=== PATIENT | male | born 1970 | race Caucasian/White ===

== ENCOUNTER 2021-08-26 22:41 | Emergency (ER) | payer OTHER ==
[2021-08-26 22:51] VITALS: BP 127/88; PULSE 99; RESP 18; TEMP 97.9
[2021-08-26] MEDS ORDERED: ACETAMINOPHEN TAB 500 MG TAB PO STA (23:11)
[2021-08-26] MEDS ORDERED: AMPICILLIN-SULBACTAM 3 GM in SODIUM CHLORIDE 0.9% 50 ML IVPB STA (23:11)
[2021-08-26] MEDS ORDERED: KETOROLAC 15 MG/ML 1 ML VIAL IVP STA (23:11)
[2021-08-26] MEDS ORDERED: DIPH,PERTUS(ACELL)TETVAC-LF 0.5 ML VIAL IM ONE (23:12)
--- NOTE | 2021-08-26 23:25 | ED ---
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 He states it was a medium-sized dog. The drawing supervisor the dog to the patient that the dog was up-to-date on immunizations. The dog can be located and monitored. Patient states the attack was unprovoked. Patient sustained a bite wound to the lateral aspect of his left lower leg just above the lateral malleolus. He also sustained a bite to the right calf bilaterally. Patient complaining of pain which is likely related to soft tissue. Patient is able to ambulate. Last tetanus unknown. Patient has no significant past medical history. Patient is a cigarette smoker. Denies alcohol or drug abuse. No headache, no fever or chills, no changes in vision or hearing, no sore throat or difficulty with speech, no neck pain, no chest pain or shortness of breath, no abdominal pain, no nausea or vomiting, no changes in urination or bowel movements, no numbness or tingling, , no skin rashes or lesions. MD Complaint: animal bite Onset/Timin -: hour(s) Left: Leg (lower), Right: Leg Animal: dog Description: household pet, immunizations UTD Mechanism: bite Pain Description: dull, constant Severity scale (1-10): 7 Context: unprovoked Associated Symptoms: none Treatments Prior to Arrival: other (none) - Related Data Previous Rx's Medication Instructions Recorded Acetaminophen [Tylenol] 500 mg PO Q4-6H PRN #24 tab 08/27/21 Amoxicillin/Potassium Clav 1 each PO Q12HR #20 tab 08/27/21 [Augmentin 875-125 Tablet] Ibuprofen [Motrin] 600 mg PO Q8HR PRN #30 tab 08/27/21 Allergies Allergy/AdvReac Type Severity Reaction Status Date / Time No Known Allergies Allergy Verified 08/26/21 22:51 Review of Systems ROS Statement: Those systems with pertinent positive or pertinent negative responses have been documented in the HPI. ROS Other: All systems not noted in ROS Statement are negative. Past Medical History Past Medical History: No Reported History History of Any Multi-Drug Resistant Organisms: None Reported Additional Past Surgical History / Comment(s): abdominal surgery, back surgery Past Psychological History: No Psychological Hx Reported Smoking Status: Current every day smoker Past Alcohol Use History: Occasional Past Drug Use History: None Reported General Exam General appearance: alert, in no apparent distress Head exam: Present: atraumatic, normocephalic, normal inspection Eye exam: Present: normal appearance, PERRL, EOMI. Absent: scleral icterus, conjunctival injection, periorbital swelling ENT exam: Present: normal exam, mucous membranes moist Neck exam: Present: normal inspection. Absent: tenderness, meningismus, lymphadenopathy Respiratory exam: Present: normal lung sounds bilaterally. Absent: respiratory distress, wheezes, rales, rhonchi, stridor Cardiovascular Exam: Present: regular rate, normal rhythm, normal heart sounds. Absent: bradycardia, tachycardia, irregular rhythm, systolic murmur, diastolic murmur, rubs, gallop, clicks GI/Abdominal exam: Present: soft, normal bowel sounds. Absent: distended, tenderness, guarding, rebound, rigid Extremities exam: Present: full ROM, tenderness, normal capillary refill. Absent: pedal edema, joint swelling, calf tenderness Back exam: Present: normal inspection, full ROM Neurological exam: Present: alert, oriented X3, CN II-XII intact Psychiatric exam: Present: normal affect, normal mood Skin exam: Present: warm, dry, normal color. Absent: rash Course Vital Signs 08/26/21 22:45 Temperature 97.9 F Pulse Rate 99 Respiratory 18 Rate Blood Pressure 127/88 O2 Sat by Pulse 96 Oximetry Procedures - Procedures Initial comment: All wounds were irrigated thoroughly with sterile water. Bacitracin applied. Sterile bandages applied. Patient tolerated well Medical Decision Making - Medical Decision Making Patient present with multiple bite wounds to both lower legs. These were fairly superficial. Although the bite wound at the medial aspect of the right lower leg did contact the subcutaneous tissue. There is no foreign body. No bony involvement. Distal pulses were 2+ a 4. Distal sensation intact. Capillary refill less than 2 seconds. Svelte now. Patient had no other wounds or abnormalities. Wounds were cleansed thoroughly. Patient was given a dose of Unasyn. Tetanus was updated. Wound care discussed, signs and symptoms of infection discussed. Dog be monitored. Patient was told to return to the ER for any signs or symptoms worsen. Told to return immediately if any other problems arise. All questions answered. Treatment plan discussed. Patient in agreement Every effort has been made to ensure accuracy of this dictation. However, due to the limitations of electronic medical records and dictation devices, errors in charting still occur. - Radiology Data Radiology results: report reviewed, image reviewed Disposition Clinical Impression: Dog bite Disposition: HOME SELF-CARE Condition: Good Instructions (If sedation given, give patient instructions): Animal Bite (ED) Additional Instructions: Medical record is reviewed Symptoms are improved here in the emergency department Patient is informed of results and questions answered Patient in no distress Prescriptions: Amoxicillin/Potassium Clav [Augmentin 875-125 Tablet] 1 each PO Q12HR #20 tab Ibuprofen [Motrin] 600 mg PO Q8HR PRN #30 tab PRN Reason: Pain Acetaminophen [Tylenol] 500 mg PO Q4-6H PRN #24 tab PRN Reason: Pain Is patient prescribed a controlled substance at d/c from ED?: No Referrals: Almas Renteria MD [STAFF PHYSICIAN] - 1-2 days Time of Disposition: 00:49
[2021-08-26] MEDS ORDERED: AMPICILLIN-SULBACTAM 3 GM in SODIUM CHLORIDE 0.9% 100 ML IVPB ONE (23:30)
--- NOTE | 2021-08-27 00:38 | XR ---
EXAMINATION TYPE: XR tibia fibula bilateral DATE OF EXAM: 08/26/2021 COMPARISON: NONE HISTORY: Trauma. bit by a dog. TECHNIQUE: 8 views FINDINGS: There is bilateral plantar calcaneal spurring. Left and right ankle joint appear intact. Th e knee joints appear intact. I see no fracture nor dislocation. No evidence of a foreign body. IMPRESSION: No acute abnormality of the bilateral tibia and fibula.
[2021-08-27] MEDS ORDERED: BACITRACIN OINT 1 EACH PACKET TOPICAL ONE (00:47)
== END 2021-08-27 01:04 | disposition home or self-care (01) ==
LOC: EC 22:41
DX: S80.872A Other superficial bite, left lower leg, initial encounter (principal); S80.871A Other superficial bite, right lower leg, initial encounter; F17.200 Nicotine dependence, unspecified, uncomplicated; W54.0XXA Bitten by dog, initial encounter
CPT/HCPCS: 73590; 90715; 99283; 96365; 96375; 90471; J0295; J1885